=== PATIENT | male | born 1945 | race Caucasian/White ===

== ENCOUNTER → 2017-12-04 | Outpatient (CLI) | payer OTHER ==
[~2017-12-04] MED LIST: BAYER ASPIRIN325 M1 PO; LEVOTHYROXINE150 MCG PO; LIPITOR20 MG PO; LOTREL 5/201 CAPSULE PO
== END | disposition home or self-care (01) ==
DX: M17.11 Unilateral primary osteoarthritis, right knee (principal); M25.561 Pain in right knee; M25.661 Stiffness of right knee, not elsewhere classified; R26.2 Difficulty in walking, not elsewhere classified; M62.81 Muscle weakness (generalized); Z74.1 Need for assistance with personal care
CPT/HCPCS: 97161 GP; 97165 GO; 97530 GP; 97535 GO; G8978 GP; G8979 GP; G8980 GP; G8987 GO; G8988 GO; G8989 GO

== ENCOUNTER 2018-01-07 21:46 | Inpatient (IN) | payer OTHER ==
[~2018-01-07] VITALS: Ht 182.9 cm; Wt 105.0 kg
[2018-01-08 09:56] VITALS: BP 144/75
[2018-01-08 17:13] VITALS: BP 162/70
[2018-01-08 20:12] VITALS: BP 137/65
[2018-01-09 00:11] VITALS: BP 148/65
[2018-01-09 04:05] VITALS: BP 103/65
[2018-01-09 08:00] VITALS: BP 129/66
[2018-01-09 11:46] VITALS: BP 110/57
[2018-01-09 16:14] VITALS: BP 104/53
[2018-01-09 20:10] VITALS: BP 107/55
[2018-01-10 00:22] VITALS: BP 136/63
[2018-01-10 04:02] VITALS: BP 113/55
[2018-01-10 07:21] VITALS: BP 107/53
[2018-01-10] MEDS ORDERED: SENNA PLUS TAB1 EACH PO (08:50)
[2018-01-10] MEDS ORDERED: ELIQUIS2.5 MG PO (08:51)
[2018-01-10] MEDS ORDERED: ENDOCET 5-3251 EACH PO (08:51)
[2018-01-10] MEDS ORDERED: CELECOXIB200 MG PO ×2 (08:51→08:55)
[2018-01-10 12:11] VITALS: BP 119/58
== END 2018-01-10 14:55 | DRG 470 ==
LOC: ENRESERV 21:46 → 2SOUTH 01-08 09:24 → SDC 01-08 09:40 → EDSTATUS 01-08 09:40 → 2SOUTH 01-08 09:42 → 3WEST 01-08 16:50 → 2SOUTH 01-08 16:52 → 3WEST 01-10 14:55
PROC: 0SRC0J9 Replacement of Right Knee Joint with Synthetic Substitute, Cemented, Open Approach (ICD-10-PCS; principal; 2018-01-08)
DX: M17.11 Unilateral primary osteoarthritis, right knee (principal); I10 Essential (primary) hypertension; E03.9 Hypothyroidism, unspecified; H93.19 Tinnitus, unspecified ear; R01.1 Cardiac murmur, unspecified
CPT/HCPCS: C1713; J0131; J0330; J0690; J1100; J1885; J2250; J2405; J2795; J7050; J7120